=== PATIENT | female | born 1975 | race Caucasian/White ===

== ENCOUNTER 2018-04-20 15:30 | Emergency (ER) | payer OTHER ==
[2018-04-20] MEDS ORDERED: Benzonatate CAP* 100 MG PO ONE (16:53)
[2018-04-20 17:16] VITALS: BP 133/93
--- NOTE | 2018-04-20 17:18 | ED ---
Influenza-Like Illness - HPI Summary HPI Summary: Patient is a 43yo F with a 2 week hx of cough and rhinorrhea. She denies any known sick contacts. She endorses productive cough with green sputum. She denies any weakness or fatigue. Denies any fevers, sweats, chills. Denies any SOB or chest pain. Denies any leg edema. She states she has otherwise healthy , takes no medications. - History of Current Complaint Chief Complaint: EDFluSymptoms Time Seen by Provider: 04/20/18 15:43 Hx Obtained From: Patient Onset/Duration: Gradual Onset Severity: Moderate Associated Signs & Symptoms: Sore Throat, Nasal Congestion - Risk Factors Influenza Risk Factors: Negative - Allergy/Home Medications Allergies/Adverse Reactions: Allergies Allergy/AdvReac Type Severity Reaction Status Date / Time acetaminophen Allergy Intermediate Hives Verified 04/20/18 15:58 Penicillins Allergy Intermediate Hives Verified 04/20/18 15:58 PMH/Surg Hx/FS Hx/Imm Hx Previously Healthy: Yes Endocrine/Hematology History: Denies: Hx Diabetes, Hx Thyroid Disease Cardiovascular History: Reports: Hx Hypertension Respiratory History: Denies: Hx Asthma, Hx Chronic Obstructive Pulmonary Disease (COPD) GI History: Denies: Hx Ulcer - Surgical History Surgery Procedure, Year, and Place: TUBAL TIED 2011 - Immunization History Hx Pertussis Vaccination: No Immunizations Up to Date: Yes Infectious Disease History: No Infectious Disease History: Denies: Hx Hepatitis, Hx Human Immunodeficiency Virus (HIV), Traveled Outside the [place] in Last 30 Days - Family History Known Family History: Positive: Hypertension - Social History Occupation: Employed Full-time Lives: With Family Alcohol Use: Rare Hx Substance Use: No Substance Use Type: Reports: None Hx Tobacco Use: No Smoking Status (MU): Never Smoked Tobacco Review of Systems Constitutional: Negative Negative: Fever, Chills, Fatigue, Skin Diaphoresis Negative: Erythema Positive: Sore Throat Negative: Palpitations, Chest Pain Positive: Cough. Negative: Shortness Of Breath Negative: Abdominal Pain, Vomiting, Diarrhea Genitourinary: Negative Positive: no symptoms reported, see HPI Negative: Arthralgia, Myalgia All Other Systems Reviewed And Are Negative: Yes Physical Exam Triage Information Reviewed: Yes Vital Signs On Initial Exam: Initial Vitals Temp Pulse Resp BP Pulse Ox 98.2 F 95 18 148/94 100 04/20/18 15:35 04/20/18 15:35 04/20/18 15:35 04/20/18 15:35 04/20/18 15:35 Vital Signs Reviewed: Yes Appearance: Positive: Well-Appearing, Well-Nourished Skin: Positive: Warm, Skin Color Reflects Adequate Perfusion Head/Face: Positive: Normal Head/Face Inspection Eyes: Positive: EOMI, GIANNA, Conjunctiva Clear Neck: Positive: Supple Respiratory/Lung Sounds: Positive: Clear to Auscultation, Breath Sounds Present Cardiovascular: Positive: Pulses are Symmetrical in both Upper and Lower Extremities. Negative: Leg Edema Left, Leg Edema Right Musculoskeletal: Positive: Normal, Strength/ROM Intact Neurological: Positive: Sensory/Motor Intact, Alert, Oriented to Person Place, Time Psychiatric: Positive: Normal, Affect/Mood Appropriate AVPU Assessment: Alert Diagnostics - Vital Signs Vital Signs Temp Pulse Resp BP Pulse Ox 04/20/18 17:15 99.1 F 86 17 133/93 100 04/20/18 15:35 98.2 F 95 18 148/94 100 - Laboratory Lab Results: Lab Results 04/20/18 Range/Units 16:14 Influenza A (Rapid) Negative (Negative) Influenza B (Rapid) Negative (Negative) Lab Statement: Any lab studies that have been ordered have been reviewed, and results considered in the medical decision making process. Flu Symptom Course/Dx - Course Course Of Treatment: Patient presents to the ED with 1.5 weeks cough and congestion and rhinorrhea. She denies any fevers, sweats, chills. Chest x-ray obtained which shows no acute active cardiopulmonary disease. Influenza negative. On physical examination, there is no maxillary or frontal sinus tenderness. Patient appears well, nontoxic. No conjunctival injection. No pharyngeal erythema. TMs with positive cone of light, no erythema. Lungs CTA. RRR. Patient is given Tessalon with good improvement. She will be discharged home with Tessalon and given upper respiratory infection at home treatments. - Diagnoses Differential Diagnosis/HQI/PQRI: Positive: Upper Respiratory Infection Provider Diagnoses: Upper respiratory infection Discharge - Sign-Out/Discharge Documenting (check all that apply): Patient Departure - Discharge Plan Condition: Stable Disposition: HOME Prescriptions: Benzonatate CAP* [Tessalon CAP*] 100 mg PO TID #21 cap guaiFENesin ER TAB [Mucinex*] 600 mg PO DAILY PRN #10 tab.er MDD 2 PRN Reason: Cough Patient Education Materials: Upper Respiratory Infection (ED) Referrals: Tone Rodriguez MD [Primary Care Provider] - - Billing Disposition and Condition Condition: STABLE Disposition: Home
== END 2018-04-20 17:15 | disposition home or self-care (01) ==
LOC: ED 15:30
DX: J06.9 Acute upper respiratory infection, unspecified (principal); Z88.6 Allergy status to analgesic agent; Z88.0 Allergy status to penicillin
CPT/HCPCS: 71046; 99282; A9270-GY